=== PATIENT | male | born 1990 | race Caucasian/White ===

== ENCOUNTER 2018-10-14 23:55 | Emergency (ER) | payer SELFPAY ==
[2018-10-15] MEDS ORDERED: Ketorolac 60 MG/2 ML SDV IM ONE (00:13)
--- NOTE | 2018-10-15 00:17 | EDM.PDOC ---
ED HPI GENERAL MEDICAL PROBLEM - General Chief Complaint: Chest Pain Stated Complaint: PT RIBS HURT Time Seen by Provider: 10/15/18 00:02 - History of Present Illness INITIAL COMMENTS - FREE TEXT/NARRATIVE: HISTORY AND PHYSICAL: History of present illness: The patient is a healthy 28-year-old male who has a history of a half a pack per day of smoking and works on the [employer] doing a lot of physical activity and presents with 4 days of left anterior chest wall rib pain. He says he does a lot of activities and did not notice any discrete trauma or injury but says that when he is home trying to relax and rest that's when he most feels that as well as with certain movements of his body and trunk. He has no pain that radiates to his stomach he has no left upper abdominal pain no flank pain no nausea or vomiting shortness of breath cough runny nose or fever. He says that the pain is in a point-like fashion just underneath the nipple on the left side and does not move. Has only taken one dose of ibuprofen yesterday and has not taken any other medications until this evening when he took one of his father's [place] tablets. He's been eating and drinking normally and has no other systemic issues. Review of systems: As per history of present illness and below otherwise all systems reviewed and negative. Past medical history: As per history of present illness and as reviewed below otherwise noncontributory. Surgical history: As per history of present illness and as reviewed below otherwise noncontributory. Social history: No reported history of drug or alcohol abuse. Family history: As per history of present illness and as reviewed below otherwise noncontributory. Physical exam: General: Well-developed well-nourished thin man who is nontoxic and vital signs are noted by me HEENT: Atraumatic, normocephalic, negative for conjunctival pallor or scleral icterus, mucous membranes moist, throat clear, neck supple, nontender, trachea midline. Lungs: Clear to auscultation, breath sounds equal bilaterally, chest has no defects deformities or crepitus and no visual evidence of any soft tissue injuries. With palpation there is discrete tenderness just underneath the breast tissue in the left anterior chest wall area that reproduces the patient' s pain but I do not appreciate any defects. When I palpate laterally from this area there is some vague tenderness but not as extreme as when I touch that one spot. Heart: S1S2, regular rate and rhythm no overt murmurs Abdomen: Soft, nondistended, nontender. Negative for masses or hepatosplenomegaly. Negative for costovertebral tenderness. Normoactive bowel sounds Pelvis: Deferred Genitourinary: Deferred. Rectal: Deferred. Extremities: Atraumatic, negative for cords or calf pain. Neurovascular unremarkable. Neuro: Awake, alert, oriented. Cranial nerves II through XII unremarkable. Cerebellum unremarkable. Motor and sensory unremarkable throughout. Exam nonfocal. Diagnostics: Left rib x-rays with chest x-ray Expiratory chest x-ray Therapeutics: Norflex Toradol Impression: Left chest wall pain Definitive disposition and diagnosis as appropriate pending reevaluation and review of above. left chest Pain Score (Numeric/FACES): 5 - Related Data Allergies Allergy/AdvReac Type Severity Reaction Status Date / Time No Known Allergies Allergy Verified 10/15/18 00:11 Home Meds: Home Meds . [No Known Home Meds] 10/15/18 [History] Past Medical History - Past Health History Medical/Surgical History: Denies Medical/Surgical History Social & Family History - Family History Family Medical History: Noncontributory - Tobacco Use Smoking Status *Q: Current Every Day Smoker Years of Tobacco use: 5 Packs/Tins Daily: 1 - Recreational Drug Use Recreational Drug Use: No ED ROS GENERAL - Review of Systems Review Of Systems: ROS reveals no pertinent complaints other than HPI. ED EXAM, GENERAL - Physical Exam Exam: See Below (See dictation) Course - Vital Signs Last Recorded V/S: Last Vital Signs Temp 36.1 C 10/14/18 23:55 Pulse 66 10/14/18 23:55 Resp 18 10/14/18 23:55 BP 133/46 L 10/14/18 23:55 Pulse Ox 95 10/14/18 23:55 - Orders/Labs/Meds Orders: Active Orders 24 hr Category Date Time Status EKG Documentation Completion [RC] STAT Care 10/15/18 12:06 Active Chest 1V Frontal [CR] Stat Exams 10/15/18 00:17 Taken Ribs 2V w Chest Lt [CR] Stat Exams 10/15/18 00:13 Taken Meds: Medications Discontinued Medications Generic Name Dose Route Start Last Admin Trade Name Freq PRN Reason Stop Dose Admin Ketorolac Tromethamine 60 mg 10/15/18 00:13 10/15/18 00:21 Toradol IM 10/15/18 00:14 60 mg ONETIME ONE Administration Orphenadrine Citrate 60 mg 10/15/18 00:13 10/15/18 00:21 Norflex IM 10/15/18 00:14 60 mg ONETIME ONE Administration Departure - Departure Time of Disposition: 01:01 Disposition: Home, Self-Care 01 Condition: Good Clinical Impression: Chest wall pain - Discharge Information Referrals: PCP,None [Primary Care Provider] - Forms: ED Department Discharge Additional Instructions: The following information is given to patients seen in the emergency department who are being discharged to home. This information is to outline your options for follow-up care. We provide all patients seen in our emergency department with a follow-up referral. The need for follow-up, as well as the timing and circumstances, are variable depending upon the specifics of your emergency department visit. If you don't have a primary care physician on staff, we will provide you with a referral. We always advise you to contact your personal physician following an emergency department visit to inform them of the circumstance of the visit and for follow-up with them and/or the need for any referrals to a consulting specialist. The emergency department will also refer you to a specialist when appropriate. This referral assures that you have the opportunity for followup care with a specialist. All of these measure are taken in an effort to provide you with optimal care, which includes your followup. Under all circumstances we always encourage you to contact your private physician who remains a resource for coordinating your care. When calling for followup care, please make the office aware that this follow-up is from your recent emergency room visit. If for any reason you are refused follow-up, please contact the [facility] emergency department at and ask to speak to the emergency department charge nurse. [facility] Primary care- Internal Medicine and Family [address] [address] Use the ibuprofen 800 mg that you have at home every 8 hours as we discussed. Use the Norflex you have been prescribed but only take that we are at home as it may make you sleepy or drowsy. Use ice to the areas after all activities and work and please call and schedule a follow-up appointment in the clinic for reevaluation and further care. Return to ER as needed and as discussed - My Orders Last 24 Hours: My Active Orders 10/15/18 00:13 Ribs 2V w Chest Lt [CR] Stat 10/15/18 00:17 Chest 1V Frontal [CR] Stat 10/15/18 12:06 EKG Documentation Completion [RC] STAT - Assessment/Plan Last 24 Hours: My Active Orders 10/15/18 00:13 Ribs 2V w Chest Lt [CR] Stat 10/15/18 00:17 Chest 1V Frontal [CR] Stat 10/15/18 12:06 EKG Documentation Completion [RC] STAT
--- NOTE | 2018-10-15 01:01 | CR ---
INDICATION: non traumatic pain. no prior. images: 1 TECHNIQUE: Chest 1 view. COMPARISON: None. FINDINGS: Cardiovascular and mediastinum: Heart size and vasculature are normal in caliber and appearance. Mediastinum is within normal limits. Lungs and pleural space: Lungs are clear. No sign of infiltrate or mass. No sign of pleural effusion. No pneumothorax. Bones and soft tissues: No significant findings. IMPRESSION: Unremarkable chest. Dictated by: Chris Oates MD @ 10/15/2018 00:59:59 (Electronically Signed)
--- NOTE | 2018-10-16 13:01 | CR ---
EXAM DATE: 10/14/18 PATIENT'S AGE: 28 Patient: ANNABELLE MCKEON Facility: [facility] Site . Site : 1990 Study: XRay-Chest Left ribs/chest-10/15/2018 12:51:07 AM Ordering Physician: Quincy Null Final Report: INDICATION: Pain, no history trauma TECHNIQUE: Chest and left ribs 3 views. COMPARISON: None FINDINGS: Cardiovascular and mediastinum: Heart size and vasculature are normal in caliber and appearance. Mediastinum is within normal limits. Lungs and pleural spaces: Lungs are clear. No sign of infiltrate or mass. No sign of pleural effusion. No pneumothorax. Bones and soft tissues: Detailed oblique images of the left ribs demonstrate no fractures or bone lesions. IMPRESSION: Unremarkable chest and left ribs. Dictated by Chris Oates MD @ 10/15/2018 12:58:49 AM Dictated by: Chris Oates MD @ 10/15/2018 00:58:55 Signed by: Chris Oates MD @10/15/2018 12:58:55 AM (Electronic Signature) Report Signed by Proxy. [facility]
== END 2018-10-15 01:15 | disposition home or self-care (01) ==
LOC: MW.ED 23:55
DX: R07.89 Other chest pain (principal); F17.210 Nicotine dependence, cigarettes, uncomplicated
CPT/HCPCS: 71045; 71101; 93005; 96372; 99285; J1885; J2360; 99284

== ENCOUNTER 2019-07-02 20:23 | Emergency (ER) | payer SELFPAY ==
[2019-07-02] MEDS ORDERED: Ondansetron 4 MG/2 ML SDV IVPUSH ONE (20:37)
--- NOTE | 2019-07-02 20:40 | EDM.PDOC ---
ED HPI GENERAL MEDICAL PROBLEM - General Chief Complaint: Drug or Alcohol Abuse Stated Complaint: OVERDOSE Time Seen by Provider: 07/02/19 20:38 Source of Information: Reports: Patient History Limitations: Reports: No Limitations - History of Present Illness INITIAL COMMENTS - FREE TEXT/NARRATIVE: 29-year-old male who presents the emergency room with a chief complaint of overdose. Patient states he took Oxy- Contin and does not remember anything else. Patient had to be given Narcan intranasally and interosseous. Patient had CPR in route. Upon arrival patient is awake and alert and oriented. Patient denies having ever overdosed in the past. Patient denies chills and fever. Patient does not know how he took the medication. Patient has no recollection of recent events. Patient now having no shortness of breath with normal vital signs. Onset: Today Onset Date: 07/02/19 Duration: Hour(s):, Improving Location: Reports: Generalized Severity: Severe Improves with: Reports: Medication (Improved with Narcan) Worsens with: Reports: None Context: Reports: Other (Drug contact) Associated Symptoms: Reports: Syncope, Weakness - Related Data Allergies Allergy/AdvReac Type Severity Reaction Status Date / Time No Known Allergies Allergy Verified 07/02/19 20:28 Home Meds: Home Meds . [No Known Home Meds] 10/15/18 [History] Past Medical History - Past Health History Medical/Surgical History: Denies Medical/Surgical History - Infectious Disease History Infectious Disease History: Reports: Chicken Pox Social & Family History - Family History Family Medical History: Noncontributory - Tobacco Use Smoking Status *Q: Unknown Ever Smoked - Caffeine Use Caffeine Use: Reports: None - Recreational Drug Use Recreational Drug Use: Yes Recreational Drug Type: Reports: Oxycodone ED ROS GENERAL - Review of Systems Review Of Systems: See Below Constitutional: Reports: No Symptoms HEENT: Reports: No Symptoms Respiratory: Reports: Shortness of Breath, Other (Positive for respiratory arrest) Cardiovascular: Reports: No Symptoms Endocrine: Reports: No Symptoms GI/Abdominal: Reports: No Symptoms : Reports: No Symptoms Musculoskeletal: Reports: No Symptoms Skin: Reports: No Symptoms Neurological: Reports: No Symptoms Psychiatric: Reports: No Symptoms Hematologic/Lymphatic: Reports: No Symptoms Immunologic: Reports: No Symptoms - Physical Exam Exam: See Below Text/Narrative:: This patient is a 29-year-old male who presents to the emergency room after overdosing on narcotic. Patient was given Narcan with improvement. Patient currently in the emergency room no symptoms. Patient has normal EKG with some ST segment changes representing early re-pole. Patient has no chest pain no shortness of breath at this time. Patient did receive CPR in route. Patient now is awake alert and oriented complaining of no pain Exam Limited By: No Limitations General Appearance: Alert, WD/WN, No Apparent Distress Ears: Normal External Exam, Normal Canal, Hearing Grossly Normal Nose: Normal Inspection, Normal Mucosa, No Blood Throat/Mouth: Normal Inspection, Normal Lips Head Exam: Atraumatic, Normocephalic Respiratory/Chest: No Respiratory Distress Cardiovascular: Normal Peripheral Pulses GI/Abdominal: Normal Bowel Sounds (Male) Exam: No Hernia, Normal Inspection, Cremasteric Reflex Neuro Exam (Abbreviated): Alert, Oriented, CN II-XII Intact Back Exam: Normal Inspection, Full Range of Motion Extremities: Normal Inspection, Normal Range of Motion Psychiatric: Normal Affect, Normal Mood Course - Vital Signs Last Recorded V/S: Last Vital Signs Temp 92.8 F L 07/02/19 20:29 Pulse 99 07/02/19 20:50 Resp 20 07/02/19 20:50 BP 164/84 H 07/02/19 20:50 Pulse Ox 99 07/02/19 20:50 - Orders/Labs/Meds Labs: Laboratory Tests 07/02/19 07/02/19 07/02/19 Range/Units 20:30 20:30 20:30 WBC Cancelled 6.74 RBC Cancelled 5.59 Hgb Cancelled 16.7 Hct Cancelled 48.3 MCV Cancelled 86.4 MCH Cancelled 29.9 MCHC Cancelled 34.6 RDW Std Deviation Cancelled 40.7 RDW Coeff of Jayden Cancelled 13 Plt Count Cancelled 255 MPV Cancelled 9.20 Neut % (Auto) 58.9 (48.0-80.0) % Lymph % (Auto) 31.8 (16.0-40.0) % [place] % (Auto) 7.6 (0.0-15.0) % Eos % (Auto) 1.6 (0.0-7.0) % Baso % (Auto) 0.1 (0.0-1.5) % Neut # (Auto) 4.0 (1.4-5.7) K/uL Lymph # (Auto) 2.1 (0.6-2.4) K/uL [place] # (Auto) 0.5 (0.0-0.8) K/uL Eos # (Auto) 0.1 (0.0-0.7) K/uL Baso # (Auto) 0.0 (0.0-0.1) K/uL Nucleated RBC % Cancelled 0.0 Nucleated RBCs # Cancelled 0 Sodium 139 (136-148) mmol/L Potassium 5.0 (3.5-5.1) mmol/L Chloride 101 (98-107) mmol/L Carbon Dioxide 27.0 (21.0-32.0) mmol/L BUN 19 H (7.0-18.0) mg/dL Creatinine 1.3 (0.8-1.3) mg/dL Est Cr Clr Drug Dosing 86.84 mL/min Estimated GFR (MDRD) > 60.0 ml/min Glucose 211 H (74-106) mg/dL Calcium 8.9 (8.5-10.1) mg/dL Total Bilirubin 0.2 (0.2-1.0) mg/dL AST 30 (15-37) IU/L ALT 55 (14-63) IU/L Alkaline Phosphatase 113 (46-116) U/L Troponin I < 0.050 (0.000-0.056) ng/mL Total Protein 8.0 (6.4-8.2) g/dL Albumin 4.0 (3.4-5.0) g/dL Globulin 4.0 (2.6-4.0) g/dL Albumin/Globulin Ratio 1.0 (0.9-1.6) Meds: Medications Discontinued Medications Generic Name Dose Route Start Last Admin Trade Name Freq PRN Reason Stop Dose Admin Ondansetron HCl 4 mg 07/02/19 20:37 07/02/19 20:49 Zofran IVPUSH 07/02/19 20:38 4 mg ONETIME ONE Administration Departure - Departure Time of Disposition: 21:48 Disposition: Home, Self-Care 01 Condition: Good Clinical Impression: Viral syndrome - Discharge Information Referrals: PCP,None [Primary Care Provider] - Forms: ED Department Discharge Sepsis Event Note - Evaluation Sepsis Screening Result: No Definite Risk - Focused Exam Vital Signs: Vital Signs Temp Temp Pulse Resp BP Pulse Ox 07/02/19 20:50 99 20 164/84 H 99 07/02/19 20:29 92.8 F L 96.5 F 95 19 160/99 H 99 Date Exam was Performed: 07/02/19 Time Exam was Performed: 21:48
[2019-07-02 21:16] LABS: BLOOD UREA NITROGEN,BUN 19 mg/dL (7.0-18.0); CHLORIDE,CL 101 mmol/L (98-107); GLUCOSE RANDOM 211 mg/dL (74-106); SODIUM,NA 139 mmol/L (136-148)
--- NOTE | 2019-07-02 21:40 | CR ---
INDICATION: Cardiac arrest. Chest pain. TECHNIQUE: AP portable upright chest. COMPARISON: October 15, 2018. FINDINGS: Both lungs are hyperinflated versus a deep inspiratory effort. Overall heart size is normal. There is no evidence for pneumothorax or congestive heart failure. No rib fracture identified. There is a cardiac pad projected over the anterior right hemithorax and the lower lateral left hemithorax likely related to resuscitative efforts. IMPRESSION: No acute cardiopulmonary process identified. Dictated by Agustin Buchanan MD @ Jul 02 2019 9:38PM Signed by Dr. Agustin Buchanan @ Jul 02 2019 9:39PM
== END 2019-07-03 00:15 | disposition home or self-care (01) ==
LOC: MW.ED 20:23
DX: B34.9 Viral infection, unspecified (principal); T40.2X1A Poisoning by other opioids, accidental (unintentional), initial encounter
CPT/HCPCS: 36415; 71045; 80053; 80305; 81003; 84484; 85025; 93005; 96374; 99284; J2405

== ENCOUNTER 2019-10-02 16:06 | Observation (INO) | payer OTHER ==
[2019-10-02] MEDS ORDERED: Morphine 10 MG/ML Syringe IVPUSH ONE (16:12)
[2019-10-02] MEDS ORDERED: Ondansetron 4 MG/2 ML SDV IVPUSH ONE (16:12)
[2019-10-02] MEDS ORDERED: Diphtheria,Pertussis(Acell),Tetanus Vaccine 0.5 ML Syringe IM ONE (16:32)
--- NOTE | 2019-10-02 16:38 | CR ---
Right tibia and fibula: Lateral view of the right tibia and fibula were obtained. Slightly comminuted fracture is noted within the distal one third diaphysis of the tibia. One cortical width of displacement is seen. Soft tissue swelling is noted. No additional abnormality is appreciated on this lateral view. Impression: 1. Distal tibial diaphyseal fracture. 2. Soft tissue swelling. Diagnostic code #5 This report was dictated in MDT
[2019-10-02] MEDS ORDERED: Ketorolac 30 MG/ML SDV IVPUSH ONE (16:47)
--- NOTE | 2019-10-02 16:54 | EDM.PDOC ---
ED HPI GENERAL MEDICAL PROBLEM - General Chief Complaint: Lower Extremity Injury/Pain Stated Complaint: RT LEG PAIN Time Seen by Provider: 10/02/19 16:49 Source of Information: Reports: Patient History Limitations: Reports: No Limitations - History of Present Illness INITIAL COMMENTS - FREE TEXT/NARRATIVE: 29-year-old male no significant past medical history does mid to a past history of substance abuse reporting a chief complaint of right lower extremity pain. Patient states he was at work and was struck directly on the right tibia with a wrench. Patient reports immediate pain patient states the pain started several hours ago after the injury. Patient reports inability to bear weight on the right leg. Patient denies any numbness or tingling of the lower extremity. Patient denies any other associated injuries. Patient not take any pain medications prior to arrival. Pmhx: None Pshx: None Family Hx: noncontributory Smoking history? Daily smoker Etoh use? none Drug use? Past In addition to that documented in the HPI above, the additional ROS was obtained : Constitutional: Denies fevers or chills Eyes: Denies vision changes ENMT: Denies sore throat CV: Denies chest pain Resp: Denies SOB GI: Denies vomiting or diarrhea MSK: Per HPI Skin: Denies new rashes Neuro: Denies new numbness or tingling or weakness Endocrine: Denies unexpected weight loss Heme: Denies bleeding disorders I have reviewed the triage vital signs Const: Well nourished, well developed, appears stated age Eyes: PERRL, no conjunctival injection HENT: NCAT, Neck supple without meningismus CV: RRR, Warm, well-perfused extremities RESP: CTAB, Unlabored respiratory effort GI: soft, non-tender, non-distended, no masses MSK: Significant soft tissue swelling of the right distal extremity. Superficial abrasion to the extremity. No evidence of protruding bone or significant bony deformity. Tenderness palpation in the distal right lower extremity. Dorsalis pedis pulse intact. Neurologically intact. Skin: Warm, dry. 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 Sensation and motor function of extremities grossly intact. Psych: Appropriate mood and affect Assessment and plan: Patient is a 29-year-old male presenting with right distal tibia fracture. At this time, there is no evidence of compartment syndrome. Patient does not require reduction. Patient given pain medication had preop labs ordered. Patient will be admitted for pain control, compartment checks, surgical fixation. No evidence of additional injuries. There is no evidence that the fracture is open given alignment of fracture as well as superficial nature of the patient's wound which is likely secondary to direct trauma from the wrench. Questions addressed and answered. Patient agrees with plan - Related Data Allergies Allergy/AdvReac Type Severity Reaction Status Date / Time No Known Allergies Allergy Verified 10/02/19 16:08 Home Meds: Home Meds . [No Known Home Meds] 10/15/18 [History] Past Medical History - Past Health History Medical/Surgical History: Denies Medical/Surgical History - Infectious Disease History Infectious Disease History: Reports: Chicken Pox - Past Surgical History HEENT Surgical History: Reports: Oral Surgery Social & Family History - Family History Family Medical History: Noncontributory - Tobacco Use Smoking Status *Q: Current Every Day Smoker Years of Tobacco use: 10 Packs/Tins Daily: 1 - Caffeine Use Caffeine Use: Reports: Energy Drinks, Tea - Recreational Drug Use Recreational Drug Use: Yes Recreational Drug Type: Reports: Marijuana/Hashish Recreational Drug Use Frequency: Rarely Review of Systems - Review of Systems Review Of Systems: See Below ED EXAM, GENERAL - Physical Exam Exam: See Below Course - Vital Signs Last Recorded V/S: Last Vital Signs Temp 36.8 C 10/02/19 16:09 Pulse 67 10/02/19 16:09 Resp 17 10/02/19 16:09 BP 143/63 H 10/02/19 16:09 Pulse Ox 97 10/02/19 16:09 - Orders/Labs/Meds Orders: Active Orders 24 hr Category Date Time Status Admission Status [Patient Status] [ADT] Stat ADT 10/02/19 16:42 Active Vaccines to be Administered [RC] PER UNIT ROUTINE Care 10/02/19 16:33 Active COMPREHENSIVE METABOLIC PN,CMP [CHEM] Stat Lab 10/02/19 16:14 Received TYPE AND SCREEN [BBK] Stat Lab 10/02/19 16:36 Received Labs: Laboratory Tests 10/02/19 10/02/19 Range/Units 16:14 16:14 WBC 14.94 H (4.0-11.0) K/uL RBC 5.08 (4.50-5.90) M/uL Hgb 14.8 (13.0-17.0) g/dL Hct 43.3 (38.0-50.0) % MCV 85.2 (80.0-98.0) fL MCH 29.1 (27.0-32.0) pg MCHC 34.2 (31.0-37.0) g/dL RDW Std Deviation 39.5 (28.0-62.0) fl RDW Coeff of Jayden 13 (11.0-15.0) % Plt Count 283 (150-400) K/uL MPV 8.90 (7.40-12.00) fL Neut % (Auto) 81.3 H (48.0-80.0) % Lymph % (Auto) 10.4 L (16.0-40.0) % [place]ess % (Auto) 7.4 (0.0-15.0) % Eos % (Auto) 0.7 (0.0-7.0) % Baso % (Auto) 0.2 (0.0-1.5) % Neut # (Auto) 12.1 H (1.4-5.7) K/uL Lymph # (Auto) 1.6 (0.6-2.4) K/uL [place] # (Auto) 1.1 H (0.0-0.8) K/uL Eos # (Auto) 0.1 (0.0-0.7) K/uL Baso # (Auto) 0.0 (0.0-0.1) K/uL Nucleated RBC % 0.0 /100WBC Nucleated RBCs # 0 K/uL INR 1.01 Meds: Medications Discontinued Medications Generic Name Dose Route Start Last Admin Trade Name Freq PRN Reason Stop Dose Admin Diphtheria/Tetanus/Acell Pertussis 0.5 ml 10/02/19 16:32 Adacel IM 10/02/19 16:33 .ONCE ONE Ketorolac Tromethamine 15 mg 10/02/19 16:47 Toradol IVPUSH 10/02/19 16:48 ONETIME ONE Morphine Sulfate 6 mg 10/02/19 16:12 10/02/19 16:19 Morphine IVPUSH 10/02/19 16:13 6 mg ONETIME ONE Administration Ondansetron HCl 4 mg 10/02/19 16:12 10/02/19 16:27 Zofran IVPUSH 10/02/19 16:13 4 mg ONETIME ONE Administration Departure - Departure Time of Disposition: 16:54 Disposition: Refer to Observation Clinical Impression: Fracture of tibia, Closed right tibial fracture - Discharge Information Referrals: PCP,None [Primary Care Provider] - Sepsis Event Note - Evaluation Sepsis Screening Result: No Definite Risk - Focused Exam Vital Signs: Vital Signs Temp Pulse Resp BP Pulse Ox 10/02/19 16:09 36.8 C 67 17 143/63 H 97 Date Exam was Performed: 10/02/19 Time Exam was Performed: 16:49 - My Orders Last 24 Hours: My Active Orders 10/02/19 16:14 COMPREHENSIVE METABOLIC PN,CMP [CHEM] Stat 10/02/19 16:33 Vaccines to be Administered [RC] PER UNIT ROUTINE 10/02/19 16:36 TYPE AND SCREEN [BBK] Stat 10/02/19 16:42 Admission Status [Patient Status] [ADT] Stat - Assessment/Plan Last 24 Hours: My Active Orders 10/02/19 16:14 COMPREHENSIVE METABOLIC PN,CMP [CHEM] Stat 10/02/19 16:33 Vaccines to be Administered [RC] PER UNIT ROUTINE 10/02/19 16:36 TYPE AND SCREEN [BBK] Stat 10/02/19 16:42 Admission Status [Patient Status] [ADT] Stat
[2019-10-02 17:01] LABS: BLOOD UREA NITROGEN,BUN 25 mg/dL (7.0-18.0); CARBON DIOXIDE,CO2 26.7 mmol/L (21.0-32.0); CHLORIDE,CL 103 mmol/L (98-107); GLUCOSE RANDOM 94 mg/dL (74-106); SODIUM,NA 140 mmol/L (136-148)
[2019-10-02] MEDS ORDERED: Acetaminophen/HYDROcodone 325-5 MG Tab PO PRN (17:22)
[2019-10-02] MEDS ORDERED: traMADol 50 MG Tab PO PRN (17:22)
[2019-10-02] MEDS ORDERED: diphenhydrAMINE 25 MG Cap PO PRN (17:22)
[2019-10-02] MEDS ORDERED: hydrOXYzine Pamoate 25 MG Cap PO PRN (17:22)
[2019-10-02] MEDS: Morphine 4 MG/ML Syringe IVPUSH SCH ×3 (18:19→21:33)
[2019-10-02] MEDS: Famotidine 20 MG Tab PO SCH (18:23)
[2019-10-02] MEDS: Ketorolac 15 MG/ML SDV IVPUSH SCH (18:28)
[2019-10-02] MEDS: Lactated Ringers 1,000 ML IV SCH (20:33)
[2019-10-03] MEDS: Ketorolac 15 MG/ML SDV IVPUSH SCH ×5 (00:20→23:14)
[2019-10-03] MEDS: Morphine 4 MG/ML Syringe IVPUSH SCH ×6 (00:23→10:26)
[2019-10-03] MEDS: Famotidine 20 MG Tab PO SCH ×2 (05:55→17:40)
--- NOTE | 2019-10-03 08:19 | PCM.PREANE ---
Preanesthetic Assessment - Anesthesia/Transfusion/Family Hx Anesthesia History: Prior Anesthesia Without Reaction ([facility]) Family History of Anesthesia Reaction: No Transfusion History: No Prior Transfusion(s) - Review of Systems General: No Symptoms Pulmonary: No Symptoms Cardiovascular: No Symptoms Gastrointestinal: No Symptoms Neurological: No Symptoms Other: Reports: None - Physical Assessment Vital Signs: Last Vital Signs Temp 98.0 F 10/03/19 04:00 Pulse 67 10/03/19 04:00 Resp 16 10/03/19 04:00 BP 131/53 L 10/03/19 04:00 Pulse Ox 97 10/03/19 04:00 Height: 5 ft 10 in Weight: 63.503 kg ASA Class: 2 Mental Status: Alert & Oriented x3 Airway Class: Mallampati = 2 Dentition: Reports: Normal Dentition ROM/Head Extension: Full Lungs: Clear to Auscultation, Normal Respiratory Effort Cardiovascular: Regular Rate, Regular Rhythm - Lab Values: Laboratory Last Values WBC 14.94 K/uL (4.0-11.0) H 10/02/19 16:14 RBC 5.08 M/uL (4.50-5.90) 10/02/19 16:14 Hgb 14.8 g/dL (13.0-17.0) 10/02/19 16:14 Hct 43.3 % (38.0-50.0) 10/02/19 16:14 MCV 85.2 fL (80.0-98.0) 10/02/19 16:14 MCH 29.1 pg (27.0-32.0) 10/02/19 16:14 MCHC 34.2 g/dL (31.0-37.0) 10/02/19 16:14 RDW Std Deviation 39.5 fl (28.0-62.0) 10/02/19 16:14 RDW Coeff of [place] 13 % (11.0-15.0) 10/02/19 16:14 Plt Count 283 K/uL (150-400) 10/02/19 16:14 MPV 8.90 fL (7.40-12.00) 10/02/19 16:14 Neut % (Auto) 81.3 % (48.0-80.0) H 10/02/19 16:14 Lymph % (Auto) 10.4 % (16.0-40.0) L 10/02/19 16:14 [place] % (Auto) 7.4 % (0.0-15.0) 10/02/19 16:14 Eos % (Auto) 0.7 % (0.0-7.0) 10/02/19 16:14 Baso % (Auto) 0.2 % (0.0-1.5) 10/02/19 16:14 Neut # (Auto) 12.1 K/uL (1.4-5.7) H 10/02/19 16:14 Lymph # (Auto) 1.6 K/uL (0.6-2.4) 10/02/19 16:14 [place] # (Auto) 1.1 K/uL (0.0-0.8) H 10/02/19 16:14 Eos # (Auto) 0.1 K/uL (0.0-0.7) 10/02/19 16:14 Baso # (Auto) 0.0 K/uL (0.0-0.1) 10/02/19 16:14 Nucleated RBC % 0.0 /100WBC 10/02/19 16:14 Nucleated RBCs # 0 K/uL 10/02/19 16:14 INR 1.01 10/02/19 16:14 Sodium 140 mmol/L (136-148) 10/02/19 16:14 Potassium 4.0 mmol/L (3.5-5.1) 10/02/19 16:14 Chloride 103 mmol/L (98-107) 10/02/19 16:14 Carbon Dioxide 26.7 mmol/L (21.0-32.0) 10/02/19 16:14 BUN 25 mg/dL (7.0-18.0) H 10/02/19 16:14 Creatinine 1.1 mg/dL (0.8-1.3) 10/02/19 16:14 Est Cr Clr Drug Dosing 89.80 mL/min 10/02/19 16:14 Estimated GFR (MDRD) > 60.0 ml/min 10/02/19 16:14 Glucose 94 mg/dL (74-106) 10/02/19 16:14 Calcium 8.8 mg/dL (8.5-10.1) 10/02/19 16:14 Total Bilirubin 0.3 mg/dL (0.2-1.0) 10/02/19 16:14 AST 25 IU/L (15-37) 10/02/19 16:14 ALT 41 IU/L (14-63) 10/02/19 16:14 Alkaline Phosphatase 110 U/L (46-116) 10/02/19 16:14 Total Protein 7.4 g/dL (6.4-8.2) 10/02/19 16:14 Albumin 4.0 g/dL (3.4-5.0) 10/02/19 16:14 Globulin 3.4 g/dL (2.6-4.0) 10/02/19 16:14 Albumin/Globulin Ratio 1.2 (0.9-1.6) 10/02/19 16:14 Blood Type O POSITIVE 10/02/19 16:36 Antibody Screen NEGATIVE 10/02/19 16:36 - Allergies Allergies/Adverse Reactions: Allergies Allergy/AdvReac Type Severity Reaction Status Date / Time No Known Allergies Allergy Verified 10/03/19 01:40 - Blood Blood Available: No - Anesthesia Plan Pre-Op Medication Ordered: None - Acknowledgements Anesthesia Type Planned: Spinal Pt an Appropriate Candidate for the Planned Anesthesia: Yes Alternatives and Risks of Anesthesia Discussed w Pt/Guardian: Yes Pt/Guardian Understands and Agrees with Anesthesia Plan: Yes Additional Comments: PMH: smoker, tobacco and cannabis PLAN: spinal with sedation PreAnesthesia Questionnaire - Past Health History Medical/Surgical History: Denies Medical/Surgical History - Infectious Disease History Infectious Disease History: Reports: Chicken Pox - Past Surgical History HEENT Surgical History: Reports: Oral Surgery - SUBSTANCE USE Smoking Status *Q: Current Every Day Smoker Tobacco Use Within Last Twelve Months: Cigarettes Second Hand Smoke Exposure: No Days Per Week of Alcohol Use: 1 Number of Drinks Per Day: 0 Total Drinks Per Week: 0 Date of Last Drink: 09/29/19 Recreational Drug Use History: Yes Recreational Drug Type: Reports: Heroin, Marijuana/Hashish - HOME MEDS Home Medications: Home Meds . [No Known Home Meds] 10/15/18 [History] - CURRENT (IN HOUSE) MEDS Current Meds: Current Medications Hydrocodone Bitart/Acetaminophen ([place] 325-5 Mg) 1 tab PO Q3H PRN PRN Reason: Pain (moderate 4-6) Diphenhydramine HCl (Benadryl) 25 mg PO Q4H PRN PRN Reason: itch Famotidine (Pepcid) 20 mg PO Q12H [facility] Last Admin: 10/03/19 05:55 Dose: 20 mg Hydroxyzine Pamoate (Vistaril) 25 mg PO Q6H PRN PRN Reason: Pain Lactated Ringer's (Ringers, Lactated) 1,000 mls @ 75 mls/hr IV ASDIRECTED [facility] Last Admin: 10/02/19 20:33 Dose: 75 mls/hr Cefazolin Sodium/Dextrose 1 gm (/ Premix) 50 mls @ 100 mls/hr IV ONETIME ONE Stop: 10/03/19 10:29 Ketorolac Tromethamine (Toradol) 15 mg IVPUSH Q6H [facility] Stop: 10/07/19 17:33 Last Admin: 10/03/19 05:53 Dose: 15 mg Morphine Sulfate (Morphine) 2 mg IVPUSH Q2H [facility] Last Admin: 10/03/19 05:54 Dose: 2 mg Tramadol HCl (Ultram) 100 mg PO Q4H PRN PRN Reason: Pain Discontinued Medications Diphtheria/Tetanus/Acell Pertussis (Adacel) 0.5 ml IM .ONCE ONE Stop: 10/02/19 16:33 Last Admin: 10/02/19 16:57 Dose: Not Given Ketorolac Tromethamine (Toradol) 15 mg IVPUSH ONETIME ONE Stop: 10/02/19 16:48 Last Admin: 10/02/19 16:54 Dose: 15 mg Morphine Sulfate (Morphine) 6 mg IVPUSH ONETIME ONE Stop: 10/02/19 16:13 Last Admin: 10/02/19 16:19 Dose: 6 mg Ondansetron HCl (Zofran) 4 mg IVPUSH ONETIME ONE Stop: 10/02/19 16:13 Last Admin: 10/02/19 16:27 Dose: 4 mg
[2019-10-03] MEDS ORDERED: fentaNYL 100 MCG/2 ML SDV ONE (08:49)
[2019-10-03] MEDS ORDERED: Ondansetron 4 MG/2 ML SDV ONE (08:49)
[2019-10-03] MEDS ORDERED: Midazolam 1 MG/ML 2 ML SDV ONE (09:42)
[2019-10-03] MEDS ORDERED: Propofol 200 MG/20 ML SDV ONE (09:42)
[2019-10-03] MEDS ORDERED: ceFAZolin 1 GM in Premix Bag 1 BAG IV ONE (10:00)
[2019-10-03] MEDS ORDERED: Ketorolac 30 MG/ML SDV ONE (10:57)
[2019-10-03] MEDS ORDERED: Morphine 4 MG/ML Syringe IVPUSH ONE (12:05)
--- NOTE | 2019-10-03 12:33 | PCM.OPNOTE ---
- General Post-Op/Procedure Note Date of Surgery/Procedure: 10/03/19 Operative Procedure(s): right tibia intramedullary nailing Pre Op Diagnosis: right tibial shaft fracture, closed Post-Op Diagnosis: Same Anesthesia Technique: Combo Spinal/Epidural, Moderate Sedation Primary Surgeon: Mian Eden Anesthesia Provider: Jaswinder Jon Retail Operations Specialist: Brandy Beebe EBL in mLs: 25 Condition: Stable Free Text/Narrative:: Intake & Output 10/02/19 10/03/19 10/03/19 22:59 06:59 14:59 Intake Total 1030 50 Output Total 400 Balance 630 50
--- NOTE | 2019-10-03 13:19 | PCM.POSTAN ---
POST ANESTHESIA ASSESSMENT - MENTAL STATUS Mental Status: Alert - VITAL SIGNS Vital Signs: Last Vital Signs Temp 36.5 C 10/03/19 12:40 Pulse 60 10/03/19 13:12 Resp 11 L 10/03/19 13:12 BP 108/44 L 10/03/19 13:12 Pulse Ox 97 10/03/19 13:12 - RESPIRATORY Respiratory Status: Respiratory Rate WNL - CARDIOVASCULAR CV Status: Pulse Rate WNL - GASTROINTESTINAL GI Status: No Symptoms - PAIN Pain Score: 0 (SAB regressing) - POST OP HYDRATION Hydration Status: Adequate & Stable (Doing well. No problems noted.)
[2019-10-03] MEDS: Lactated Ringers 1,000 ML IV SCH (13:32)
[2019-10-03] MEDS: Acetaminophen/oxyCODONE 325-5 MG Tab PO PRN ×2 (15:49→20:04)
[2019-10-03] MEDS: Nicotine 21 MG/24 Hr Patch TRDERM SCH (16:10)
--- NOTE | 2019-10-03 16:22 | CR ---
Tibia and fibula: 7 fluoroscopic spot views were obtained of the tibia and fibula utilizing C-arm device. Comparison: Previous right tibia and fibula study of 10/02/19. Study shows placement of an intramedullary shanita affixing previous tibial diaphyseal fracture. Fluoroscopy time given as 73.4 seconds. Impression: 1. Procedural study. Diagnostic code #2 This report was dictated in MDT
--- NOTE | 2019-10-03 17:07 | OR ---
SURGEON: Mian Eden DATE OF PROCEDURE: 10/03/2019 PREOPERATIVE DIAGNOSIS: Right tibial shaft fracture, closed. POSTOPERATIVE DIAGNOSIS: Right tibial shaft fracture, closed. PROCEDURE: Right tibial intramedullary nailing. PRIMARY SURGEON: Mian Eden DO BOTTOM CEMENTER: RAMIREZ Batista ROLE OF BOTTOM CEMENTER: Nurse practitioner, RAMIREZ Batista, played an essential role in assisting in this case, helping to position the patient, retract structures as needed, as well as suturing and cutting sutures as indicated. Her presence improved patient's safety and decreased operative time. ANESTHESIA: Jaswinder Jon CRNA, spinal plus conscious sedation. FLUID: Lactated Ringer's solution. ESTIMATED BLOOD LOSS: 25 mL. COMPLICATIONS: None. SPECIMEN: None. DISCHARGE DISPOSITION: Stable to PACU. HISTORY AND INDICATIONS FOR THE PROCEDURE: The patient came into the emergency department late yesterday afternoon. He was found to have the above-mentioned fracture on radiographs. Risks and goals of the procedure were explained to the patient. Informed consent was obtained. DETAILS OF PROCEDURE: The patient was seen preoperatively by myself and the Anesthesia staff in the preoperative holding area where the operative site was marked. He was brought to the operative suite by the Anesthesia staff where spinal sedation plus conscious sedation were administered. All extremities were found to be well padded. A well-padded tourniquet was placed on the right thigh. The right lower extremity was then prepped and draped in a sterile manner. Time-out was called identifying the correct patient, the correct procedure, the correct site, and that antibiotics had been given within appropriate period of time. The right lower extremity was exsanguinated. Tourniquet was raised to 250 mmHg for 60 minutes and let down during closure. The medial border of the lateral tibial spine was marked using a [place] and a sterilely draped fluoroscopy unit and as well as the border of the articular and nonarticular surface anteriorly. This was confirmed in multiple views. I used an awl for the starting point and advanced and confirmed the starting point with fluoroscopy. After the awl was placed into the canal, I then inserted a ball-tipped guidewire, which was slightly bent. I then removed my awl and then advanced the ball-tipped guidewire down to the level close to the distal tibia. This measured 345 mm. I then used an opening reamer and then reamed with a 9.5 and a 10 mm reamer down to the end of the ball-tipped probe. After that had been accomplished, we inserted a 9 mm x 345 mm tibial nail. I confirmed good alignment of the fracture when I did this. After we confirmed on lateral fluoroscopy that the nail was down to the appropriate length and then looked at it distally to make sure that it was down far enough, we then removed the striking pad from the handle and then applied our outrigger. I then placed a medial and lateral oblique screw by drilling, measuring, and then placing the screws. I then focused on my distal locking screws. I applied two of them. I did notice the fracture was in valgus at this point. We then aligned the fracture, and while holding it in place, did our two distal locking screws with a perfect [place] technique. Because the fracture had been malaligned, I did place a Poller screw through the distal hole and then anteriorly to posteriorly. I then took our final films. My emergency room physician assistant then closed the deep proximal incision with 2-0 Vicryl and gladys. The rest were covered with gladys. Then, we covered with Betadine-soaked Adaptic, fluffs, and an Blaise wrap. He was placed into a CAM walker boot. The patient was then allowed to awaken from conscious sedation and then taken to the PACU in stable condition. [id number] / MODL /[id number]
[2019-10-03] MEDS: Morphine 2 MG/ML Syringe IVPUSH PRN ×2 (18:46→21:17)
[2019-10-04] MEDS: Lactated Ringers 1,000 ML IV SCH (01:29)
[2019-10-04] MEDS: Acetaminophen/oxyCODONE 325-5 MG Tab PO PRN ×2 (03:28→08:17)
[2019-10-04] MEDS: Ketorolac 15 MG/ML SDV IVPUSH SCH (06:29)
[2019-10-04] MEDS: Famotidine 20 MG Tab PO SCH (06:31)
[2019-10-04] MEDS ORDERED: Bupivacaine 0.5%/EPINEPHrine 1:200,000 10 ML SDV ONE (07:29)
[2019-10-04] MEDS: Nicotine 21 MG/24 Hr Patch TRDERM SCH (08:20)
--- NOTE | 2019-10-04 10:22 | PCM48HPAN ---
Post Anesthesia Note - EVALUATION WITHIN 48HRS OF ANESTHETIC Vital Signs in Normal Range: Yes Patient Participated in Evaluation: Yes Respiratory Function Stable: Yes Airway Patent: Yes Cardiovascular Function Stable: Yes Hydration Status Stable: Yes Pain Control Satisfactory: Yes Nausea and Vomiting Control Satisfactory: Yes Mental Status Recovered: Yes Vital Signs: Last Vital Signs Temp 37.2 C 10/04/19 08:00 Pulse 78 10/04/19 08:00 Resp 14 10/04/19 08:00 BP 124/58 L 10/04/19 08:00 Pulse Ox 97 10/04/19 08:00 - COMMENTS/OBSERVATIONS Free Text/Narrative:: Doing well.
--- NOTE | 2019-10-04 14:37 | PCM.SURGPN ---
- General Info Date of Service: 10/04/19 (0800) Date of Surgery/Procedure: 10/03/19 POD#: 1 Post-Op Diagnosis: Intrameduallary nail right TIBIA Functional Status: Reports: Pain Controlled, Tolerating Diet, Urinating - Review of Systems General: Reports: No Symptoms. Denies: Fever Pulmonary: Denies: Shortness of Breath Cardiovascular: Denies: Chest Pain Gastrointestinal: Denies: Abdominal Pain, Nausea, Vomiting Neurological: Denies: No Symptoms - Patient Data Vitals - Most Recent: Last Vital Signs Temp 37.2 C 10/04/19 08:00 Pulse 78 10/04/19 08:00 Resp 14 10/04/19 08:00 BP 124/58 L 10/04/19 08:00 Pulse Ox 97 10/04/19 08:00 Weight - Most Recent: 63.503 kg I&O - Last 24 Hours: Intake & Output 10/03/19 10/04/19 10/04/19 22:59 06:59 14:59 Intake Total 1125 1497 702 Output Total 900 1600 350 Balance 225 -103 352 Med Orders - Current: Current Medications Discontinued Medications Hydrocodone Bitart/Acetaminophen ([place] 325-5 Mg) 1 tab PO Q3H PRN PRN Reason: Pain (moderate 4-6) Bupivacaine HCl/Epinephrine Bitart ([place] 0.5%/Epinephrine 1:200,000) Confirm Administered Dose 10 ml .ROUTE .STK-MED ONE Stop: 10/04/19 07:30 Diphenhydramine HCl (Benadryl) 25 mg PO Q4H PRN PRN Reason: itch Diphtheria/Tetanus/Acell Pertussis (Adacel) 0.5 ml IM .ONCE ONE Stop: 10/02/19 16:33 Last Admin: 10/02/19 16:57 Dose: Not Given Famotidine (Pepcid) 20 mg PO Q12H [facility] Last Admin: 10/04/19 06:31 Dose: 20 mg Fentanyl (Sublimaze) Confirm Administered Dose 100 mcg .ROUTE .STK-MED ONE Stop: 10/03/19 08:50 Hydroxyzine Pamoate (Vistaril) 25 mg PO Q6H PRN PRN Reason: Pain Lactated Ringer's (Ringers, Lactated) 1,000 mls @ 75 mls/hr IV ASDIRECTED [facility] Last Admin: 10/04/19 01:29 Dose: 75 mls/hr Cefazolin Sodium/Dextrose 1 gm (/ Premix) 50 mls @ 100 mls/hr IV ONETIME ONE Stop: 10/03/19 10:29 Last Admin: 10/03/19 09:23 Dose: 100 mls/hr Acetaminophen (Ofirmev) Confirm Administered Dose 100 mls @ as directed .ROUTE .STK-MED ONE Stop: 10/03/19 10:14 Ketorolac Tromethamine (Toradol) 15 mg IVPUSH ONETIME ONE Stop: 10/02/19 16:48 Last Admin: 10/02/19 16:54 Dose: 15 mg Ketorolac Tromethamine (Toradol) 15 mg IVPUSH Q6H [facility] Stop: 10/07/19 17:33 Last Admin: 10/04/19 06:29 Dose: 15 mg Ketorolac Tromethamine (Toradol) Confirm Administered Dose 30 mg .ROUTE .STK- MED ONE Stop: 10/03/19 10:58 Midazolam HCl (Versed 1 Mg/Ml) Confirm Administered Dose 2 mg .ROUTE .STK-MED ONE Stop: 10/03/19 09:43 Morphine Sulfate (Morphine) 6 mg IVPUSH ONETIME ONE Stop: 10/02/19 16:13 Last Admin: 10/02/19 16:19 Dose: 6 mg Morphine Sulfate (Morphine) 2 mg IVPUSH Q2H [facility] Last Admin: 10/03/19 10:26 Dose: 2 mg Morphine Sulfate (Morphine) 2 mg IVPUSH Q2H PRN PRN Reason: Pain Last Admin: 10/03/19 21:17 Dose: 2 mg Morphine Sulfate (Morphine) 4 mg IVPUSH ONETIME ONE Stop: 10/03/19 12:06 Last Admin: 10/03/19 13:16 Dose: Not Given Nicotine (Habitrol) 21 mg TRDERM DAILY [facility] Last Admin: 10/04/19 08:20 Dose: 21 mg Ondansetron HCl (Zofran) 4 mg IVPUSH ONETIME ONE Stop: 10/02/19 16:13 Last Admin: 10/02/19 16:27 Dose: 4 mg Ondansetron HCl (Zofran) Confirm Administered Dose 4 mg .ROUTE .STK-MED ONE Stop: 03/25/20 08:50 Oxycodone/Acetaminophen (Percocet 325-5 Mg) 2 tab PO Q4H PRN PRN Reason: Pain (severe 7-10) Last Admin: 10/04/19 08:17 Dose: 2 tab Propofol (Diprivan 20 Ml) Confirm Administered Dose 200 mg .ROUTE .STK-MED ONE Stop: 10/03/19 09:43 Tramadol HCl (Ultram) 100 mg PO Q4H PRN PRN Reason: Pain - Exam Wound/Incisions: Dressing Dry and Intact (CamBoot on RLE. Blaise bandage in Cam Boot CDI.) General: Alert, Oriented, Cooperative, No Acute Distress (he was sleeping when entered room) HEENT: Pupils Equal Lungs: Normal Respiratory Effort Cardiovascular: Regular Rate Extremities: Other (Actively wiggles toes. Sensation intact to toes. Foot elevated on pillow) Skin: Warm, Dry Neurological: Normal Speech Psy/Mental Status: Alert, Normal Affect, Normal Mood Sepsis Event Note - Evaluation Sepsis Screening Result: No Definite Risk - Focused Exam Vital Signs: Vital Signs Temp Pulse Resp BP Pulse Ox 10/04/19 08:00 37.2 C 78 14 124/58 L 97 10/04/19 03:32 36 C L 65 16 124/56 L 97 Date Exam was Performed: 10/04/19 Time Exam was Performed: 14:29 - Problem List Review Problem List Initiated/Reviewed/Updated: Yes - My Orders Last 24 Hours: Active Orders 24 hr Category Date Time Status Ready for Discharge [RC] PER UNIT ROUTINE Care 10/04/19 08:52 Active - Assessment Assessment (Free Text/Narrative):: s/p Intramedullary nail RIGHT TIBIA - Plan Plan (Free Text/Narrative):: Grady awakened from sleep this morning. States he is ready to go home. Tolerating po food/fluids without N/V. Pain manageable. Ice pack on right knee. CamBoot on RLE. Actively wiggles toes and sensation grossly intact to toes. Yesterday, received phone call from nursing staff that Grady had request for Nicotine patch. 21mcg patch was applied, and he requested continued Rx upon discharge to aid with smoking cessation. Spoke with Grady about adverse effects that nicotine has on healing, with recommendation to quit smoking. He has crutches for use. Informed to continue NWB status, and elevate RLE to minimize swelling and pain. He will be scheduled for a follow up visit in 2 weeks for removal of the gladys. Pain controlled with Percocet, and spoke to him about managing mild pain with Tylenol, and taking Percocet for acute pain only. Grady had no additional questions, and is ready to be discharged home.
== END 2019-10-04 09:55 | disposition home or self-care (01) ==
LOC: MW.ED 16:06 → MW.MS 16:42
PROVIDERS: ADMIT Orthopaedic Surgery; ATTEND Orthopaedic Surgery
DX: S82.201A Unspecified fracture of shaft of right tibia, initial encounter for closed fracture (principal); F17.210 Nicotine dependence, cigarettes, uncomplicated; W22.8XXA Striking against or struck by other objects, initial encounter; Y99.0 Civilian activity done for income or pay
CPT/HCPCS: 27759; 36415; 73590; 80053; 85025; 85610; 86850; 86900; 86901; 96374; 96375; 99284; A9270; C1713; C1769; C1776; J0131; J0690; J1885; J2250; J2270; J2405; J2704; J3010; J3490; J7120

== ENCOUNTER 2019-12-28 19:09 | Emergency (ER) | payer SELFPAY ==
[2019-12-28] MEDS ORDERED: Sodium Chloride 0.9% 10 ML Syringe FLUSH PRN (19:18)
[2019-12-28] MEDS ORDERED: Sodium Chloride 0.9% 2.5 ML Syringe FLUSH PRN (19:18)
[2019-12-28] MEDS ORDERED: Sodium Chloride 0.9% 10 ML SDV IV PRN (19:18)
--- NOTE | 2019-12-28 19:18 | EDM.PDOC ---
ED HPI GENERAL MEDICAL PROBLEM - General Chief Complaint: Drug or Alcohol Abuse Stated Complaint: OVERDOSE Time Seen by Provider: 12/28/19 19:11 Source of Information: Reports: Patient History Limitations: Reports: No Limitations - History of Present Illness INITIAL COMMENTS - FREE TEXT/NARRATIVE: 29-year-old male presents with overdose after smoking 1 pill of oxycodone 30 mg. Family gave 5 minutes of CPR. History per EMS. Family also gave 4 mg of Narcan, EMS then gave another 4 mg. Currently patient is lucid with no distress or no complaints. He denies fever, chills, suicidality, homicidality, chest pain, shortness breath, abdominal pain, nausea, vomiting, diarrhea, headache. ROS: A 10-point review of systems, other than pertinent positives and negatives as stated per HPI, is otherwise negative PHYSICAL EXAM General: AOx4, GCS = 15, No distress HEENT: dry mucous membrane Neck: supple, no meningismus, no Kernig or Brudzinski Cardiac: S1S2 RRR Respiratory: CTAB, no crackles or rales, no wheezing Abdomen: Soft, nontender, no rebound or guarding, nondistended, no pulsatile mass. Back: nontender Musculoskeletal: NVI distally, no deformity Neuro: No focal deficits, CN 2 - 12 WNL. psych: No SI, HI, VH, AH. MEDICAL DECISION MAKING: I reviewed the patients past medical records, lab and radiographic findings. I discussed the case with family members. My differential diagnosis included: Overdose, electrolyte abnormality, refracture. - Related Data Allergies Allergy/AdvReac Type Severity Reaction Status Date / Time No Known Allergies Allergy Verified 10/03/19 01:40 Home Meds: Home Meds Acetaminophen/oxyCODONE [Percocet 325-5 MG] 1 - 2 tab PO Q6H PRN #30 tablet 10/04/19 [Rx] Nicotine [Habitrol] 21 mg TRDERM DAILY #14 patch 10/04/19 [Rx] Past Medical History - Past Health History Medical/Surgical History: Denies Medical/Surgical History - Infectious Disease History Infectious Disease History: Reports: Chicken Pox - Past Surgical History HEENT Surgical History: Reports: Oral Surgery Social & Family History - Family History Family Medical History: Noncontributory - Caffeine Use Caffeine Use: Reports: Coffee, Energy Drinks ED ROS GENERAL - Review of Systems Review Of Systems: See Below (see dictation) - Physical Exam Exam: See Below (see dictation) EKG INTERPRETATION EKG Interpretation Comments: 88 Bpm, NSR, normal QRS interval, no STEMI. EKG and rhythm strip interpreted by me at 1909 Course - Vital Signs Last Recorded V/S: Last Vital Signs Temp 98.2 F 12/28/19 19:21 Pulse 90 12/28/19 19:21 Resp 16 12/28/19 19:21 BP 139/84 12/28/19 19:21 Pulse Ox 93 L 12/28/19 19:21 - Orders/Labs/Meds Orders: Active Orders 24 hr Category Date Time Status Cardiac Monitoring [RC] . DIRECTED Care 12/28/19 19:18 Active Oxygen Therapy [RC] PRN Care 12/28/19 19:18 Active Peripheral IV Insertion Adult [OM.PC] Stat Oth 12/28/19 19:18 Ordered Labs: Laboratory Tests 12/28/19 12/28/19 12/28/19 Range/Units 19:31 19:31 19:31 WBC 8.83 (4.0-11.0) K/uL RBC 5.23 (4.50-5.90) M/uL Hgb 15.4 (13.0-17.0) g/dL Hct 44.3 (38.0-50.0) % MCV 84.7 (80.0-98.0) fL MCH 29.4 (27.0-32.0) pg MCHC 34.8 (31.0-37.0) g/dL RDW Std Deviation 40.5 (28.0-62.0) fl RDW Coeff of Jayden 13 (11.0-15.0) % Plt Count 273 (150-400) K/uL MPV 8.90 (7.40-12.00) fL Neut % (Auto) 72.4 (48.0-80.0) % Lymph % (Auto) 17.2 (16.0-40.0) % [place] % (Auto) 9.2 (0.0-15.0) % Eos % (Auto) 1.0 (0.0-7.0) % Baso % (Auto) 0.2 (0.0-1.5) % Neut # (Auto) 6.4 H (1.4-5.7) K/uL Lymph # (Auto) 1.5 (0.6-2.4) K/uL [place] # (Auto) 0.8 (0.0-0.8) K/uL Eos # (Auto) 0.1 (0.0-0.7) K/uL Baso # (Auto) 0.0 (0.0-0.1) K/uL Nucleated RBC % 0.0 /100WBC Nucleated RBCs # 0 K/uL Sodium 141 (136-148) mmol/L Potassium 3.6 (3.5-5.1) mmol/L Chloride 103 (98-107) mmol/L Carbon Dioxide 28.4 (21.0-32.0) mmol/L BUN 16 (7.0-18.0) mg/dL Creatinine 1.0 (0.8-1.3) mg/dL Est Cr Clr Drug Dosing 113.56 mL/min Estimated GFR (MDRD) > 60.0 ml/min Glucose 112 H (74-106) mg/dL Calcium 9.0 (8.5-10.1) mg/dL Total Bilirubin 0.4 (0.2-1.0) mg/dL AST 32 (15-37) IU/L ALT 33 (14-63) IU/L Alkaline Phosphatase 129 H (46-116) U/L Troponin I < 0.050 (0.000-0.056) ng/mL Total Protein 7.5 (6.4-8.2) g/dL Albumin 4.0 (3.4-5.0) g/dL Globulin 3.5 (2.6-4.0) g/dL Albumin/Globulin Ratio 1.1 (0.9-1.6) Salicylates 3.1 (0-20) mg/dL Acetaminophen <2.0 ug/mL Ethyl Alcohol < 3.0 mg/dL Meds: Medications Discontinued Medications Generic Name Dose Route Start Last Admin Trade Name Freq PRN Reason Stop Dose Admin Sodium Chloride 1,000 mls @ 500 mls/hr 12/28/19 19:30 12/28/19 19:29 Normal Saline IV 500 mls/hr BOLUS HOWIE Administration Sodium Chloride 10 ml 12/28/19 19:18 Saline Flush FLUSH ASDIRECTED PRN Keep Vein Open Sodium Chloride 2.5 ml 12/28/19 19:18 Saline Flush FLUSH ASDIRECTED PRN Keep Vein Open Sodium Chloride 10 ml 12/28/19 19:18 Normal Saline IV ASDIRECTED PRN IV Use - Re-Assessments/Exams Free Text/Narrative Re-Assessment/Exam: 12/28/192029 Patient is choosing to leave against medical advice. I personally explained to the patient that choosing to do so may result in permanent bodily harm or . I discussed at great length that without further evaluation and monitoring there may be unforeseen circumstances and deterioration causing permanent bodily harm or as a result of their choice. The patient is alert, oriented, and competent at this time. The patient states that they are aware of the serious risks as explained, but they still choose to leave against medical advice. The patient is aware that they did not allow us to complete their evaluation, and there is still the possibility that an emergency condition could exist. This has been thoroughly explained to the patient and the patient has indicated your understanding of such. The patient is assuming all risk and liability for such a condition, or for such a condition subsequently developing. The patient is doing so at their own free will, with a full knowledge of the potential consequences of these actions. The patient was encouraged to return at any time should they experience any changes about evaluation, or should they develop any new or worsening symptoms that concerns them. Departure - Departure Time of Disposition: 20:30 Disposition: Against Medical Advice 07 Condition: Good Clinical Impression: Drug abuse - Discharge Information *PRESCRIPTION DRUG MONITORING PROGRAM REVIEWED*: Not Applicable *COPY OF PRESCRIPTION DRUG MONITORING REPORT IN PATIENT MICAH: Not Applicable Instructions: Finding Treatment for Addiction, Substance Use Disorder Referrals: PCP,None [Primary Care Provider] - 1 Week Forms: ED Department Discharge Additional Instructions: The following information is given to patients seen in the emergency department who are being discharged to home. This information is to outline your options for follow-up care. We provide all patients seen in our emergency department with a follow-up referral. The need for follow-up, as well as the timing and circumstances, are variable depending upon the specifics of your emergency department visit. If you don't have a primary care physician on staff, we will provide you with a referral. We always advise you to contact your personal physician following an emergency department visit to inform them of the circumstance of the visit and for follow-up with them and/or the need for any referrals to a consulting specialist. The emergency department will also refer you to a specialist when appropriate. This referral assures that you have the opportunity for follow-up care with a specialist. All of these measure are taken in an effort to provide you with optimal care, which includes your follow-up. Under all circumstances we always encourage you to contact your private physician who remains a resource for coordinating your care. When calling for follow-up care, please make the office aware that this follow-up is from your recent emergency room visit. If for any reason you are refused follow-up, please contact the [facility] Department at and asked to speak to the emergency department charge nurse. If you do not have a primary care doctor, please follow up with the clinics below within 3-5 days. [facility] - [facility] [address] [place] [id number] [facility] [address] [place] [id number] Sepsis Event Note (ED) - Focused Exam Vital Signs: Vital Signs Temp Pulse Resp BP Pulse Ox 12/28/19 19:21 98.2 F 90 16 139/84 93 L - My Orders Last 24 Hours: My Active Orders 12/28/19 19:18 Cardiac Monitoring [RC] . DIRECTED Oxygen Therapy [RC] PRN Peripheral IV Insertion Adult [OM.PC] Stat - Assessment/Plan Last 24 Hours: My Active Orders 12/28/19 19:18 Cardiac Monitoring [RC] . DIRECTED Oxygen Therapy [RC] PRN Peripheral IV Insertion Adult [OM.PC] Stat
[2019-12-28] MEDS ORDERED: Sodium Chloride 0.9% 1,000 ML IV SCH (19:30)
--- NOTE | 2019-12-28 19:48 | CR ---
Chest: Portable view of the chest was obtained. Comparison: No prior chest imaging is available. Heart size and mediastinum are normal. Lungs are clear with no acute parenchymal change. Bony structures are grossly intact. Impression: 1. Nothing acute is seen on portable chest x-ray. Diagnostic code #1 Study was dictated in MDT
[2019-12-28 19:58] LABS: ACETAMINOPHEN <2.0 ug/mL; BLOOD UREA NITROGEN,BUN 16 mg/dL (7.0-18.0); CARBON DIOXIDE,CO2 28.4 mmol/L (21.0-32.0); CHLORIDE,CL 103 mmol/L (98-107); GLUCOSE RANDOM 112 mg/dL (74-106); POTASSIUM,K 3.6 mmol/L (3.5-5.1); SODIUM,NA 141 mmol/L (136-148)
== END 2019-12-28 20:40 | disposition left against medical advice (07) ==
LOC: MW.ED 19:09
DX: F19.10 Other psychoactive substance abuse, uncomplicated (principal); F17.200 Nicotine dependence, unspecified, uncomplicated
CPT/HCPCS: 36415; 71045; 80053; 80307; 84484; 85025; 93005; 99284; J7030